=== PATIENT | female | born 1975 | race Caucasian/White ===

== ENCOUNTER → 2017-02-05 | Day surgery (SDC) | payer OTHER ==
--- NOTE | 2017-02-04 15:23 | PCM.ANEPRE ---
Anesthesia Pre-Op Review Reason for Review: Uncontrolled diabetes last A1c 12 per pt. Additional Comments 41 F with HgbA1C of 12. The anesthesiologist will evaluate the patient on the DOS and will discuss the case with the surgeon. The ultimate decision will be made on the DOS by the anesthesiologist. Bronson Nunez MD Feb 04, 2017 15:22
[~2017-02-05] VITALS: Ht 167.6 cm; Wt 225.8 kg
[~2017-02-05] MED LIST: AMT25T PO; ATRV10T PO; DULO60CA61 PO; FUR20 PO; Lactated Ringer's 1,000 ML IV ONE; METF-496 PO; NOVO7030I SUBQ; NPH,100V11 SUBQ; NYST1000 PO; POTA10TA12 PO; SELE180S7 TP
[2017-02-05 12:47] VITALS: BP 136/88; PULSE 115; RESP 18; O2SAT 97
== END | disposition home or self-care (01) ==
LOC: SAS 12:35
PROVIDERS: ATTEND Plastic Surgery
DX: E11.65 Type 2 diabetes mellitus with hyperglycemia (principal); G56.01 Carpal tunnel syndrome, right upper limb; Z53.09 Procedure and treatment not carried out because of other contraindication
CPT/HCPCS: 36415; 84132; J7120